=== PATIENT | male | born 2005 | race Caucasian/White ===

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

== ENCOUNTER 2023-05-18 10:00 | Outpatient (RCR) | payer BC, SELFPAY | END 2024-01-03 13:56 | disposition home or self-care (01) | LOC: HO.PTCHIC 10:00 | PROVIDERS: PCP Pediatrics; Visit Provider Internal Medicine Sports Medicine | DX: M77.9 Enthesopathy, unspecified (principal) | CPT/HCPCS: 97110; 97140; 97161 ==

== ENCOUNTER 2024-04-10 15:00 | Outpatient (RCR) | payer OTHER, SELFPAY | END 2024-04-11 08:07 | disposition home or self-care (01) | LOC: HO.PTCHIC 15:00 | PROVIDERS: PCP Pediatrics; Visit Provider Orthopaedic Surgery | DX: Z98.890 Other specified postprocedural states (principal) | CPT/HCPCS: 97110; 97140; 97161 ==